=== PATIENT | female | born 1995 | race Two or more races ===

== ENCOUNTER 2017-08-13 13:21 | Emergency (ER) | payer MEDICAID, OTHER ==
[2017-08-13] MEDS ORDERED: MORPHINE 10 MG/ML VIAL IVP STA (13:59)
[2017-08-13] MEDS ORDERED: SODIUM CHLORIDE 0.9% 1,000 ML IV ONE (13:59)
[2017-08-13] MEDS ORDERED: KETOROLAC 30 MG/ML VIAL IVP STA (13:59)
[2017-08-13] MEDS ORDERED: ONDANSETRON 4 MG/2 ML VIAL IVP STA (13:59)
--- NOTE | 2017-08-13 14:02 | ED Physician Documentation ---
PD HPI ABD PAIN - Stated complaint Stated Complaint: SIDE PX - Chief complaint Chief Complaint: Abd Pain - History obtained from History obtained from: Patient - History of Present Illness Timing - onset: Today (At 1030 she abruptly developed severe wavelike crampy left-sided abdominal and flank pain associated with cloudy but not bloody urine. When the pain is bad she feels like she needs to vomit. is unlikely because of oral contraception.) Review of Systems Constitutional: denies: Fever, Chills Cardiac: denies: Chest pain / pressure, Palpitations Respiratory: denies: Dyspnea, Cough GI: reports: Abdominal Pain, Nausea. denies: Vomiting, Constipation, Diarrhea : denies: Dysuria, Frequency PD PAST MEDICAL HISTORY - Past Medical History Past Medical History: No - Present Medications Home Medications: Ambulatory Orders Medication Instructions Recorded Confirmed Ciprofloxacin HCl [Cipro] 500 mg PO BID #14 tablet 08/13/17 HYDROcod/ACETAM 5/325 [[place] 5/325] 1 - 2 ea PO Q6H PRN #15 tablet 08/13/17 - Allergies Allergies/Adverse Reactions: Allergies Allergy/AdvReac Type Severity Reaction Status Date / Time amoxicillin Allergy Anaphylaxis Verified 08/13/17 13:36 Penicillins Allergy Anaphylaxis Verified 08/13/17 13:36 - Social History Substance Use and Type: Marijuana - Family History Family history: reports: Non contributory PD ED PE NORMAL - Vitals Vital signs reviewed: Yes - General General: Alert and oriented X 3, No acute distress - HEENT HEENT: PERRL, EOMI - Neck Neck: Supple, no meningeal sign, No bony TTP - Cardiac Cardiac: RRR, No murmur - Respiratory Respiratory: No respiratory distress, Clear bilaterally - Abdomen Abdomen: Other (Mild, left-sided abdominal tenderness, no surgical signs.) - Back Back: No CVA TTP, No spinal TTP - Derm Derm: Normal color, Warm and dry - Extremities Extremities: No edema, No calf tenderness / cord - Neuro Neuro: Alert and oriented X 3, Normal speech - Psych Psych: Normal mood, Normal affect Results - Vitals Vitals: Vital Signs - 24 hr 08/13/17 13:29 Temperature 36.6 C Heart Rate 87 Respiratory 16 Rate Blood Pressure 132/78 H O2 Saturation 99 Oxygen O2 Source Room air - Labs Labs: Laboratory Tests 08/13/17 08/13/17 08/13/17 13:44 13:44 14:20 WBC 9.7 RBC 4.97 Hgb 15.2 Hct 45.0 MCV 90.6 MCH 30.5 MCHC 33.7 RDW 13.7 Plt Count 237 MPV 8.5 Neut # 6.5 Lymph # 2.7 [place] # 0.4 Eos # 0.1 Baso # 0.0 Absolute Nucleated RBC 0.01 Nucleated RBC % 0.1 Sodium Potassium Chloride Carbon Dioxide Anion Gap BUN Creatinine Estimated GFR (MDRD) Glucose Calcium Total Bilirubin AST ALT Alkaline Phosphatase Total Protein Albumin Globulin Albumin/Globulin Ratio Lipase Urine Color YELLOW Urine Clarity CLOUDY Urine pH 7.5 Ur Specific [place] 1.020 1.020 Urine Protein NEGATIVE Urine Glucose (UA) NEGATIVE Urine Ketones NEGATIVE Urine Occult Blood SMALL H Urine Nitrite NEGATIVE Urine Bilirubin NEGATIVE Urine Urobilinogen 0.2 (NORMAL) Ur Leukocyte Esterase NEGATIVE Urine RBC 6-10 H Urine WBC 0-3 Ur Squamous Epith Cells FEW Squamous Amorphous Sediment Moderate Urine Bacteria Moderate H Ur Microscopic Review INDICATED Urine Culture Comments INDICATED Urine HCG, Qual NEGATIVE 08/13/17 14:20 WBC RBC Hgb Hct MCV MCH MCHC RDW Plt Count MPV Neut # Lymph # [place] # Eos # Baso # Absolute Nucleated RBC Nucleated RBC % Sodium 137 Potassium 3.6 Chloride 102 Carbon Dioxide 26 Anion Gap 9.0 BUN 14 Creatinine 0.7 Estimated GFR (MDRD) 107 Glucose 89 Calcium 9.8 Total Bilirubin 0.6 AST 17 ALT 18 Alkaline Phosphatase 61 Total Protein 8.1 Albumin 4.9 Globulin 3.2 Albumin/Globulin Ratio 1.5 Lipase 28 Urine Color Urine Clarity Urine pH Ur Specific [place] Urine Protein Urine Glucose (UA) Urine Ketones Urine Occult Blood Urine Nitrite Urine Bilirubin Urine Urobilinogen Ur Leukocyte Esterase Urine RBC Urine WBC Ur Squamous Epith Cells Amorphous Sediment Urine Bacteria Ur Microscopic Review Urine Culture Comments Urine HCG, Qual - Rads (name of study) CT KUB Radiology: EMP read contemporaneously (Small nonobstructing stones within the left kidney without obvious obstructing stone or hydronephrosis.) PD MEDICAL DECISION MAKING - ED course ED course: 21-year-old woman presents with what seems like renal colic, however no obstructing stones are seen on CT KUB. Review of her other diagnostic suggested it is more likely to be pyelonephritis. She is nontoxic. She was pain-free after the administration of pain medications here. Departure - Departure Disposition: Home, Self Care Clinical Impression: Pyelonephritis Condition: Good Record reviewed to determine appropriate education?: Yes Instructions: Pyelonephritis Dc Prescriptions: Ciprofloxacin HCl [Cipro] 500 mg PO BID #14 tablet HYDROcod/ACETAM 5/325 [[place] 5/325] 1 - 2 ea PO Q6H PRN #15 tablet PRN Reason: Pain Comments: Call your doctor to arrange a follow-up appointment, make the next available appointment. In the interim, return anytime if worse or if new symptoms develop. Your blood pressure was elevated today on check into the emergency department. This does not mean that you have hypertension, it is a common phenomenon to come to the emergency department and have elevated blood pressure. I recommend that you see your primary care physician within the week to have it rechecked when you are feeling better. Do not drink or drive while taking narcotic pain medication. Note that many narcotic pain relievers also contain Tylenol/acetaminophen. Please ensure that your total dose of acetaminophen from all sources does not exceed 3 g (3000 mg) per day. You may get constipated while on this medication. Take a stool softener such as Colace twice a day while you are on it. Also add an [id number] laxative such as senna or MiraLAX on any day that you do not have a bowel movement. If you received a narcotic pain medication or sedative while in the emergency department, do not drive for the next 24 hours. Forms: Activity restrictions
[2017-08-13 14:07] LABS: BILIRUBIN,URINE NEGATIVE (NEGATIVE); GLUCOSE, URINE (UA) NEGATIVE (NEGATIVE); KETONES,URINE (UA) NEGATIVE (NEGATIVE); LEUKOCYTE ESTERASE, URINE NEGATIVE (NEGATIVE); NITRITE,URINE NEGATIVE (NEGATIVE); OCCULT BLOOD,URINE SMALL (NEGATIVE); PH,URINE 7.5 PH (5.0-7.5); PROTEIN,URINE NEGATIVE (NEGATIVE); UROBILINOGEN,URINE 0.2 (NORMAL) E.U./dL (NORMAL)
[2017-08-13 14:10] LABS: CLARITY,URINE CLOUDY (CLEAR)
[2017-08-13 14:22] LABS: AMORPHOUS SEDIMENT,UR Moderate /LPF; BACTERIA,URINE Moderate /HPF (None Seen); SQUAMOUS EPITHELIAL CELL,UR FEW Squamous (<= Few)
[2017-08-13 14:30] LABS: HCG UR QUAL NEGATIVE
[2017-08-13 14:38] LABS: BASOPHILS % (AUTO) 0.4 %; EOSINOPHILS # (AUTO) 0.1 10^3/uL (0.0-0.7); EOSINOPHILS % (AUTO) 0.5 %; HGB - HEMOGLOBIN 15.2 g/dL (12.0-16.0); LYMPHOCYTES # (AUTO) 2.7 10^3/uL (1.5-3.5); LYMPHOCYTES % (AUTO) 27.7 %; MEAN CORPUSCULAR HEMOGLOBIN 30.5 pg (27.0-31.0); MEAN CORPUSCULAR HGB CONC 33.7 g/dL (32.0-36.0); MEAN CORPUSCULAR VOLUME 90.6 fL (81.0-99.0); MEAN PLATELET VOLUME 8.5 fL (7.9-10.8); MONOCYTES # (AUTO) 0.4 10^3/uL (0.0-1.0); MONOCYTES % (AUTO) 4.2 %; NEUTROPHILS # (AUTO) 6.5 10^3/uL (1.5-6.6); NEUTROPHILS % (AUTO) 67.2 %; PLT - PLATELET COUNT 237 10^3/uL (130-450); RED BLOOD COUNT 4.97 10^6/uL (4.20-5.40); RED CELL DISTRIBUTION WIDTH 13.7 % (12.0-15.0); WHITE BLOOD COUNT 9.7 x10^3/uL (4.8-10.8)
[2017-08-13 14:50] LABS: ALBUMIN 4.9 g/dL (3.2-5.5); ALBUMIN/GLOBULIN RATIO 1.5 (1.0-2.2); BILIRUBIN,TOTAL 0.6 mg/dL (0.2-1.0); CALCIUM 9.8 mg/dL (8.5-10.3); CREATININE 0.7 mg/dL (0.4-1.0); TOTAL PROTEIN 8.1 g/dL (6.7-8.2)
--- NOTE | 2017-08-13 15:06 | CT Report ---
EXAM: CT ABDOMEN AND PELVIS EXAM DATE: 08/13/2017 02:41 PM. CLINICAL HISTORY: L flank pain. COMPARISONS: 05/12/2011. TECHNIQUE: Routine axial helical CT imaging was performed through the abdomen and pelvis without IV c ontrast. Reconstructions: Coronal and sagittal. In accordance with CT protocol optimization, one or more of the following dose reduction techniques w ere utilized for this exam: automated exposure control, adjustment of mA and/or KV based on patient s ize, or use of iterative reconstructive technique. FINDINGS: Lung Bases: Unremarkable. Abdominal Organs: There are several small nonobstructing stones within the left kidney. There is no e vidence of distal obstructing stone or significant hydronephrosis. Gallbladder/bile ducts: No significant abnormalities. Peritoneal Cavity: No free fluid, free air or donnell adenopathy. Bowel is grossly unremarkable. Pelvic Organs: No bladder stones or wall thickening. Noncontrast images of the visualized pelvic orga ns are unremarkable. Vasculature: Unremarkable. Other: None. IMPRESSION: 1. There are small nonobstructing stones within the left kidney. There is no clear evidence of distal obstructing stone or hydronephrosis. 2. Otherwise negative noncontrast CT of the abdomen and pelvis. Referring Provider Line: [phone] SITE ID: [id number]
[2017-08-13] MEDS ORDERED: CIPROFLOXACIN 250 MG TABLET PO STA (15:13)
[2017-08-13 15:37] VITALS: BP 110/61
== END 2017-08-13 15:38 | disposition home or self-care (01) ==
LOC: ED 13:21
DX: N12 Tubulo-interstitial nephritis, not specified as acute or chronic (principal); I10 Essential (primary) hypertension
CPT/HCPCS: 36415; 74176; 80053; 81001; 81025; 83690; 85025; 87086; 96374; 96375; 99283; 99284; A9270; 81003

== ENCOUNTER 2017-12-21 18:49 | Emergency (ER) | payer OTHER ==
[2017-12-21 18:56] VITALS: BP 115/61
[2017-12-21 19:27] LABS: BILIRUBIN,URINE NEGATIVE (NEGATIVE); GLUCOSE, URINE (UA) NEGATIVE (NEGATIVE); KETONES,URINE (UA) NEGATIVE (NEGATIVE); LEUKOCYTE ESTERASE, URINE SMALL (NEGATIVE); NITRITE,URINE NEGATIVE (NEGATIVE); OCCULT BLOOD,URINE LARGE (NEGATIVE); PROTEIN,URINE NEGATIVE (NEGATIVE); UROBILINOGEN,URINE 0.2 (NORMAL) E.U./dL (NORMAL)
[2017-12-21 19:32] LABS: CLARITY,URINE CLEAR (CLEAR); HCG UR QUAL NEGATIVE
[2017-12-21 19:36] LABS: BACTERIA,URINE Many /HPF (None Seen); RBC,URINE TNTC /HPF (0-5); SQUAMOUS EPITHELIAL CELL,UR FEW Squamous (<= Few); WBC CLUMPS,URINE PRESENT
[2017-12-21] MEDS ORDERED: KETOROLAC 60 MG/2 ML VIAL IVP STA (20:54)
[2017-12-21] MEDS ORDERED: ONDANSETRON 4 MG/2 ML VIAL IVP STA (20:54)
[2017-12-21] MEDS ORDERED: SODIUM CHLORIDE 0.9% 1,000 ML IV ONE (20:54)
--- NOTE | 2017-12-21 20:59 | ED Physician Documentation ---
PD HPI ABD PAIN - Stated complaint Stated Complaint: L ABD/BACK PX - Chief complaint Chief Complaint: Abd Pain - History obtained from History obtained from: Patient - History of Present Illness Timing - onset: Today (22-year-old woman who I saw a few months ago for pyelonephritis, negative cultures at the time. CT noted, left nephrolithiasis at that time. She developed sudden left flank pain today with 3 episodes of vomiting and no urinary symptoms or fevers.) Review of Systems Constitutional: denies: Fever, Chills Eyes: reports: Reviewed and negative GI: reports: Nausea, Vomiting, Constipation. denies: Abdominal Pain, Diarrhea Skin: reports: Reviewed and negative PD PAST MEDICAL HISTORY - Past Medical History Other Past Medical History: kidney stone - Past Surgical History Past Surgical History: No - Present Medications Home Medications: Ambulatory Orders Medication Instructions Recorded Confirmed Ciprofloxacin HCl [Cipro] 500 mg PO BID #20 tablet 12/21/17 Hydrocodone/Acetaminophen 1 - 2 each PO Q6H PRN #14 tablet 12/21/17 [Hydrocodon-Acetaminophen 5-325] Ondansetron Odt [Zofran] 4 mg TL Q6H PRN #10 tablet 12/21/17 Tamsulosin [Flomax] 0.4 mg PO DAILY #14 capsule 12/21/17 - Allergies Allergies/Adverse Reactions: Allergies Allergy/AdvReac Type Severity Reaction Status Date / Time amoxicillin Allergy Anaphylaxis Verified 12/21/17 20:48 Penicillins Allergy Anaphylaxis Verified 12/21/17 20:48 - Social History Does the pt smoke?: No Smoking Status: Never smoker Does the pt drink ETOH?: No Does the pt have substance abuse?: Yes - Immunizations Immunizations are current?: Yes PD ED PE NORMAL - Vitals Vital signs reviewed: Yes - General General: Alert and oriented X 3, No acute distress - Cardiac Cardiac: RRR, No murmur - Respiratory Respiratory: No respiratory distress, Clear bilaterally - Abdomen Abdomen: Normal bowel sounds, Soft, Non tender - Back Back: No CVA TTP, No spinal TTP - Derm Derm: Normal color, Warm and dry - Extremities Extremities: No edema, No calf tenderness / cord - Neuro Neuro: Alert and oriented X 3, Normal speech Results - Vitals Vitals: Vital Signs - 24 hr 12/21/17 18:53 Temperature 37.0 C Heart Rate 87 Respiratory 16 Rate Blood Pressure 115/61 O2 Saturation 98 Oxygen O2 Source Room air - Labs Labs: Laboratory Tests 12/21/17 12/21/17 12/21/17 19:21 21:05 21:05 WBC 14.9 H RBC 4.77 Hgb 15.0 Hct 43.6 MCV 91.5 MCH 31.4 H MCHC 34.3 RDW 14.1 Plt Count 289 MPV 8.3 Neut # (Auto) 10.9 H Lymph # (Auto) 2.9 [place] # (Auto) 0.9 Eos # (Auto) 0.0 Baso # (Auto) 0.1 Absolute Nucleated RBC 0.01 Nucleated RBC % 0.0 Sodium 140 Potassium 4.0 Chloride 107 Carbon Dioxide 28 Anion Gap 5.0 L BUN 10 Creatinine 1.0 Estimated GFR (MDRD) 70 L Glucose 98 Calcium 9.5 Total Bilirubin 0.2 AST 19 ALT 16 Alkaline Phosphatase 72 Total Protein 8.0 Albumin 4.4 Globulin 3.6 Albumin/Globulin Ratio 1.2 Lipase 33 Urine Color YELLOW Urine Clarity CLEAR Urine pH 7.0 Ur Specific [place] 1.020 Urine Protein NEGATIVE Urine Glucose (UA) NEGATIVE Urine Ketones NEGATIVE Urine Occult Blood LARGE H Urine Nitrite NEGATIVE Urine Bilirubin NEGATIVE Urine Urobilinogen 0.2 (NORMAL) Ur Leukocyte Esterase SMALL H Urine RBC TNTC H Urine WBC >25 H Urine WBC Clumps PRESENT Ur Squamous Epith Cells FEW Squamous Urine Bacteria Many H Ur Microscopic Review INDICATED Urine Culture Comments INDICATED Urine HCG, Qual NEGATIVE - Rads (name of study) CT KUB Radiology: EMP read contemporaneously (2 small 2 mm left distal ureteral stones with mild hydronephrosis.) PD MEDICAL DECISION MAKING - ED course ED course: Urinalysis consistent with pyelonephritis but the lack of urinary symptoms and relatively sudden onset make me worried for infected ureteral stone given that she had known ureteral stones on that side from prior CT so this needs to be repeated. The CT did show 2 small distal left ureteral stones. Given the infection the case was discussed by phone with Dr. Liz De Jesus, urologist at [facility] who felt that given the lack of fever and the lower and small nature of the stones this could be treated with oral antibiotics as an outpatient with follow-up with them in the clinic. - Sepsis Event Vital Signs: Vital Signs - 24 hr 12/21/17 18:53 Temperature 37.0 C Heart Rate 87 Respiratory 16 Rate Blood Pressure 115/61 O2 Saturation 98 Oxygen O2 Source Room air Departure - Departure Disposition: 01 Home, Self Care Clinical Impression: Pyelonephritis, Renal colic Condition: Good Record reviewed to determine appropriate education?: Yes Instructions: Pyelonephritis Dc Prescriptions: Ciprofloxacin HCl [Cipro] 500 mg PO BID #20 tablet Hydrocodone/Acetaminophen [Hydrocodon-Acetaminophen 5-325] 1 - 2 each PO Q6H PRN #14 tablet PRN Reason: pain Ondansetron Odt [Zofran] 4 mg TL Q6H PRN #10 tablet PRN Reason: Nausea / Vomiting Tamsulosin [Flomax] 0.4 mg PO DAILY #14 capsule Comments: You need to follow-up with a urologist. I spoke with Dr. Liz luke, her phone number [phone]. Call them tomorrow. We will culture your urine, the results should be done in 48-72 hours. If an antibiotic change is necessary we will call you. Return if worse in the meantime, especially if you develop increasing flank pain, fevers, or cannot keep down the medication. Forms: Activity restrictions Discharge Date/Time: 12/21/17 22:38
[2017-12-21 21:18] LABS: BASOPHILS # (AUTO) 0.1 10^3/uL (0.0-0.1); BASOPHILS % (AUTO) 0.6 %; EOSINOPHILS % (AUTO) 0.2 %; LYMPHOCYTES # (AUTO) 2.9 10^3/uL (1.5-3.5); LYMPHOCYTES % (AUTO) 19.5 %; MEAN CORPUSCULAR HEMOGLOBIN 31.4 pg (27.0-31.0); MEAN CORPUSCULAR HGB CONC 34.3 g/dL (32.0-36.0); MEAN CORPUSCULAR VOLUME 91.5 fL (81.0-99.0); MEAN PLATELET VOLUME 8.3 fL (7.9-10.8); MONOCYTES # (AUTO) 0.9 10^3/uL (0.0-1.0); MONOCYTES % (AUTO) 6.3 %; NEUTROPHILS # (AUTO) 10.9 10^3/uL (1.5-6.6); NEUTROPHILS % (AUTO) 73.4 %; PLT - PLATELET COUNT 289 10^3/uL (130-450); RED BLOOD COUNT 4.77 10^6/uL (4.20-5.40); RED CELL DISTRIBUTION WIDTH 14.1 % (12.0-15.0); WHITE BLOOD COUNT 14.9 x10^3/uL (4.8-10.8)
[2017-12-21 21:32] LABS: ALBUMIN 4.4 g/dL (3.2-5.5); ALBUMIN/GLOBULIN RATIO 1.2 (1.0-2.2); BILIRUBIN,TOTAL 0.2 mg/dL (0.2-1.0); CALCIUM 9.5 mg/dL (8.5-10.3)
--- NOTE | 2017-12-21 21:40 | CT Report ---
Reason: L flank pain, poss infected ureteral stone Procedure Date: 12/21/2017 Accession Number: [id number] / [id number] Procedure: CT - Abdomen/Pelvis W/O CPT Code: FULL RESULT: EXAM: CT ABDOMEN AND PELVIS EXAM DATE: 12/21/2017 09:23 PM. CLINICAL HISTORY: L flank pain, poss infected ureteral stone. COMPARISONS: 08/13/2017 TECHNIQUE: Routine helical CT imaging was performed through the abdomen and pelvis without intravenous or oral contrast as per clinical request. Lack of intravenous contrast can at times limited scan sensitivity, particularly for the detection of intraparenchymal and vascular pathology. Reconstructions: Coronal and sagittal. In accordance with CT protocol optimization, one or more of the following dose reduction techniques were utilized for this exam: automated exposure control, adjustment of mA and/or KV based on patient size, or use of iterative reconstructive technique. FINDINGS: ABDOMEN: Lung Bases: Incompletely included lower lungs are grossly clear. Heart size is within normal limits. No basilar effusions. Liver: Unremarkable. Gallbladder/Bile Ducts: Gallbladder is unremarkable. Visualized biliary tree is normal caliber. Spleen: Unremarkable. Pancreas: Unremarkable. Adrenal Glands: Unremarkable. Kidneys: Left kidney: 2 previously seen 2 mm left renal calculi are now present in the distal left ureter adjacent to the UVJ with mild hydroureteronephrosis. Right kidney: No calculi or hydronephrosis. Peritoneum/Mesentery/Bowel: No free fluid, free air, or collection. No intestinal obstruction or inflammation. The appendix is within normal limits. Lymph nodes: No mesenteric, periportal, or retroperitoneal lymphadenopathy. PELVIS: The bladder is unremarkable for the degree of distention. Uterus is present. No pelvic lymphadenopathy. Retroperitoneum: Abdominal aorta is nonaneurysmal. Bones: No suspicious osseous lesions. IMPRESSION: There are 2 adjacent 2 mm calculi in the distal left ureter adjacent to the UVJ with mild upstream hydroureteronephrosis. RADIA
[2017-12-21] MEDS ORDERED: CIPROFLOXACIN 250 MG TABLET PO STA (22:03)
[2017-12-21] MEDS ORDERED: TAMSULOSIN 0.4 MG CAPSULE PO STA (22:03)
[2017-12-21] MEDS ORDERED: HYDROcod/ACET 5/325 Prepack 4 PO STA (22:08)
[2017-12-21] MEDS ORDERED: ONDANSETRON ODT 4 MG TABLET TL STA (22:09)
== END 2017-12-21 22:38 | disposition home or self-care (01) ==
LOC: ED 18:49
DX: N12 Tubulo-interstitial nephritis, not specified as acute or chronic (principal); N23 Unspecified renal colic
CPT/HCPCS: 36415; 74176; 80053; 81001; 81025; 83690; 85025; 87086; 96374; 96375; 96376; 99283; 99284; A9270; Q0162; 81003; 87181

== ENCOUNTER 2018-02-19 00:32 | Emergency (ER) | payer OTHER ==
--- NOTE | 2018-02-19 01:25 | ED Physician Documentation ---
PD HPI HEENT - Stated complaint Stated Complaint: EAR PX - Chief complaint Chief Complaint: Heent - History obtained from History obtained from: Patient, Family - History of Present Illness Timing - onset: How many days ago (5) Timing - duration: Days (5) Timing - details: Gradual onset, Still present Location: Left ear, Throat Improves: Medication Worsens: Swalllowing Associated symptoms: Fever, Congestion, Unable to swallow, Swollen nodes, Facial swelling, Headache Similar symptoms before: Diagnosis (strep) Recently seen: Clinic - Additional information Additional information: 22-year-old female was diagnosed with strep pharyngitis 5 days ago she started on some azithromycin and she is not better. She has continued to have swelling and pain in her throat she is not been able to swallow and she has not been able to eat or drink much. She feels very dehydrated. She is allergic to penicillin. Tonight she is developed pain in her left ear as well and she is coming to the emergency department for evaluation. Review of Systems Constitutional: reports: Fever, Myalgias, Fatigue Eyes: denies: Decreased vision Ears: reports: Ear pain Nose: reports: Rhinorrhea / runny nose, Congestion Throat: reports: Sore throat Cardiac: denies: Chest pain / pressure, Palpitations Respiratory: reports: Cough. denies: Dyspnea GI: denies: Abdominal Pain, Nausea, Vomiting : denies: Dysuria, Frequency PD PAST MEDICAL HISTORY - Past Medical History Past Medical History: No - Past Surgical History Past Surgical History: No - Present Medications Home Medications: Ambulatory Orders Medication Instructions Recorded Confirmed Ciprofloxacin HCl [Cipro] 500 mg PO BID #20 tablet 12/21/17 Hydrocodone/Acetaminophen 1 - 2 each PO Q6H PRN #14 tablet 12/21/17 [Hydrocodon-Acetaminophen 5-325] Ondansetron Odt [Zofran] 4 mg TL Q6H PRN #10 tablet 12/21/17 Tamsulosin [Flomax] 0.4 mg PO DAILY #14 capsule 12/21/17 RX: Cefdinir 300 mg PO BID #14 capsule 02/19/18 - Allergies Allergies/Adverse Reactions: Allergies Allergy/AdvReac Type Severity Reaction Status Date / Time amoxicillin Allergy Anaphylaxis Verified 02/19/18 00:38 Penicillins Allergy Anaphylaxis Verified 02/19/18 00:38 - Social History Does the pt smoke?: No Smoking Status: Never smoker Does the pt drink ETOH?: No Does the pt have substance abuse?: Yes - Immunizations Immunizations are current?: Yes - POLST Patient has POLST: No PD ED PE NORMAL - Vitals Vital signs reviewed: Yes (tachy and hypertensive mild ) - General General: Alert and oriented X 3, No acute distress, Well developed/nourished, Other (The patient has a mouth full of eggs voice. ) - HEENT HEENT: Atraumatic, PERRL, EOMI, Ears normal, Other (The ears are normal, the pharynx is with 2+ cryptic tonsil on the right and 3+ on the left with exudate. ) - Neck Neck: Supple, no meningeal sign, No bony TTP, Other (There is tender submandibular adenopathy bilaterally worse on the left. ) - Cardiac Cardiac: No murmur, Other (tachy ) - Respiratory Respiratory: No respiratory distress, Clear bilaterally - Abdomen Abdomen: Soft, Non tender - Back Back: No CVA TTP, No spinal TTP - Derm Derm: Normal color, Warm and dry, No rash - Extremities Extremities: No deformity, No edema - Neuro Neuro: Alert and oriented X 3, bone density technician 2-12 intact, No motor deficit, No sensory deficit, Normal speech Eye Opening: Spontaneous Motor: Obeys Commands Verbal: Oriented GCS Score: 15 - Psych Psych: Normal mood, Normal affect Results - Vitals Vitals: Vital Signs - 24 hr 02/19/18 02/19/18 00:37 03:31 Temperature 36.9 C Heart Rate 106 H 96 Respiratory 16 16 Rate Blood Pressure 133/76 H 117/70 O2 Saturation 100 100 Oxygen O2 Source Room air - Labs Labs: Laboratory Tests 02/19/18 02/19/18 01:45 01:45 WBC 17.9 H RBC 4.90 Hgb 14.8 Hct 44.3 MCV 90.4 MCH 30.2 MCHC 33.4 RDW 13.3 Plt Count 306 MPV 8.4 Neut # (Auto) 14.6 H Lymph # (Auto) 1.9 [place] # (Auto) 1.3 H Eos # (Auto) 0.0 Baso # (Auto) 0.1 Absolute Nucleated RBC 0.02 Nucleated RBC % 0.1 Sodium 138 Potassium 3.7 Chloride 101 Carbon Dioxide 22 Anion Gap 15.0 H BUN 10 Creatinine 0.8 Estimated GFR (MDRD) 91 Glucose 87 Calcium 9.4 Total Bilirubin 1.2 H AST 17 ALT 12 Alkaline Phosphatase 80 Total Protein 8.7 H Albumin 4.2 Globulin 4.5 H Albumin/Globulin Ratio 0.9 L Lipase 22 Procedures - IVC sono (time) 0120 Bedside IVC sono: IVC measures (cm) (0.95), IVC collapsed c insp (cm) (complete), Dehydration (est 1-2 liter deficit) PD MEDICAL DECISION MAKING - ED course Complexity details: reviewed old records, reviewed results, re-evaluated patient, considered differential, d/w patient, d/w family ED course: 22-year-old female with acute cryptic tonsillitis has not responded to treatment with azithromycin. She is unable to swallow even her spit and it does look like she has marked swelling of the tonsils. She is administered intravenous dexamethasone saline and Rocephin. The patient has marked improvement and after 2 liters are infused she is discharged to home. Departure - Departure Disposition: 01 Home, Self Care Clinical Impression: Acute bacterial tonsillitis, Dehydration Instructions: ED Dehydration, ED Tonsillitis Follow-Up: Kanu Mullins MD [Provider Admit Priv/Credential] - Prescriptions: RX: Cefdinir 300 mg PO BID #14 capsule Discharge Date/Time: 02/19/18 03:32
[2018-02-19] MEDS ORDERED: SODIUM CHLORIDE 0.9% 1,000 ML IV ONE ×2 (01:28→02:42)
[2018-02-19] MEDS ORDERED: cefTRIAXone 1 GM in SODIUM CHLORIDE 0.9% MINIBAG 100 ML IV STA (01:28)
[2018-02-19] MEDS ORDERED: DEXAMETHASONE 10 MG/ML VIAL IVP ONE (01:28)
[2018-02-19 02:13] LABS: BASOPHILS # (AUTO) 0.1 10^3/uL (0.0-0.1); BASOPHILS % (AUTO) 0.3 %; EOSINOPHILS % (AUTO) 0.1 %; HGB - HEMOGLOBIN 14.8 g/dL (12.0-16.0); LYMPHOCYTES # (AUTO) 1.9 10^3/uL (1.5-3.5); LYMPHOCYTES % (AUTO) 10.7 %; MEAN CORPUSCULAR HEMOGLOBIN 30.2 pg (27.0-31.0); MEAN CORPUSCULAR HGB CONC 33.4 g/dL (32.0-36.0); MEAN CORPUSCULAR VOLUME 90.4 fL (81.0-99.0); MEAN PLATELET VOLUME 8.4 fL (7.9-10.8); MONOCYTES # (AUTO) 1.3 10^3/uL (0.0-1.0); MONOCYTES % (AUTO) 7.5 %; NEUTROPHILS # (AUTO) 14.6 10^3/uL (1.5-6.6); NEUTROPHILS % (AUTO) 81.4 %; PLT - PLATELET COUNT 306 10^3/uL (130-450); RED CELL DISTRIBUTION WIDTH 13.3 % (12.0-15.0); WHITE BLOOD COUNT 17.9 x10^3/uL (4.8-10.8)
[2018-02-19 02:15] LABS: ALBUMIN 4.2 g/dL (3.2-5.5); ALBUMIN/GLOBULIN RATIO 0.9 (1.0-2.2); BILIRUBIN,TOTAL 1.2 mg/dL (0.2-1.0); CALCIUM 9.4 mg/dL (8.5-10.3); CREATININE 0.8 mg/dL (0.4-1.0); TOTAL PROTEIN 8.7 g/dL (6.7-8.2)
[2018-02-19 03:32] VITALS: BP 117/70
== END 2018-02-19 03:32 | disposition home or self-care (01) ==
LOC: ED 00:32
DX: J03.90 Acute tonsillitis, unspecified (principal); B96.89 Other specified bacterial agents as the cause of diseases classified elsewhere; E86.0 Dehydration; Z88.0 Allergy status to penicillin
CPT/HCPCS: 36415; 80053; 83690; 85025; 96361; 96365; 96375; 99283

== ENCOUNTER 2021-08-27 04:39 | Emergency (ER) | payer OTHER ==
[2021-08-27] MEDS ORDERED: SODIUM CHLORIDE 0.9% 1,000 ML IV STA (04:59)
[2021-08-27] MEDS ORDERED: KETOROLAC 30 MG/ML VIAL IVP STA (04:59)
[2021-08-27] MEDS ORDERED: ONDANSETRON 4 MG/2 ML VIAL IVP STA ×2 (04:59→08:12)
--- NOTE | 2021-08-27 05:16 | ED Physician Documentation ---
PD HPI NVD - Stated complaint Stated Complaint: VOMITING - Chief complaint Chief Complaint: Abd Pain - History obtained from History obtained from: Patient - Additonal information Additional information: Patient is a 26-year-old female with no significant past medical history presenting for evaluation of multiple episodes of emesis and diarrhea starting at 10 PM. She reports feeling somewhat unwell all through the day yesterday did not eat much other than a piece of lump you. She has been vomiting Liquids including some bile and now dry heaving. She reports her diarrhea was watery. She does report generalized abdominal discomfort. She is unaware of any sick contacts. Denies recent fever, cough, congestion, chest pain or difficulty breathing. She denies dysuria or concerns for . She denies vaginal discharge or pelvic pain. Review of Systems Constitutional: denies: Fever Nose: denies: Congestion Throat: denies: Sore throat Cardiac: denies: Chest pain / pressure, Palpitations Respiratory: denies: Dyspnea, Cough GI: reports: Abdominal Pain, Nausea, Vomiting, Diarrhea : denies: Dysuria, Hematuria, Discharge, Vaginal bleeding Skin: denies: Rash Musculoskeletal: denies: Back pain Neurologic: denies: Headache PD PAST MEDICAL HISTORY - Past Surgical History Past Surgical History: No - Present Medications Home Medications: Ambulatory Orders Medication Instructions Recorded Confirmed Ondansetron Odt [Zofran] 4 mg TL Q6H PRN #10 tablet 08/27/21 - Allergies Allergies/Adverse Reactions: Allergies Allergy/AdvReac Type Severity Reaction Status Date / Time amoxicillin Allergy Anaphylaxis Verified 08/27/21 04:48 Penicillins Allergy Anaphylaxis Verified 08/27/21 04:48 - Social History Does the pt smoke?: No Smoking Status: Never smoker Does the pt drink ETOH?: No Does the pt have substance abuse?: Yes - Immunizations Immunizations are current?: Yes - POLST Patient has POLST: No PD ED PE NORMAL - General General: Alert and oriented X 3, No acute distress, Well developed/nourished, Other (Dry heaving) - HEENT HEENT: Atraumatic, Moist mucous membranes, Pharynx benign - Neck Neck: Supple, no meningeal sign - Cardiac Cardiac: RRR, No murmur, Strong equal pulses - Respiratory Respiratory: No respiratory distress, Clear bilaterally - Abdomen Abdomen: Normal bowel sounds, Soft, Non distended, Other (Left-sided abdominal tenderness to palpation, no rebound, no guarding, no masses). No: Non tender - Back Back: No CVA TTP - Derm Derm: Warm and dry - Extremities Extremities: No edema - Neuro Neuro: No motor deficit, Normal speech - Psych Psych: Normal mood PD ED PE EXPANDED - Abdomen Abdomen: LUQ, LLQ Results - Vitals Vitals: Vital Signs - 24 hr 08/27/21 08/27/21 08/27/21 04:45 06:47 08:00 Temperature 36.1 C L Heart Rate 71 64 66 Respiratory 18 18 17 Rate Blood Pressure 114/66 97/58 L 91/50 L O2 Saturation 100 100 100 08/27/21 09:23 Temperature 36.8 C Heart Rate 60 Respiratory 16 Rate Blood Pressure 95/52 L O2 Saturation 100 Oxygen O2 Source Room air - Labs Labs: Laboratory Tests 08/27/21 08/27/21 08/27/21 05:45 05:45 06:05 WBC 12.7 H RBC 5.19 Hgb 16.4 H Hct 46.5 MCV 89.6 MCH 31.6 H MCHC 35.3 RDW 12.4 Plt Count 274 MPV 9.9 Neut # (Auto) 10.4 H Lymph # (Auto) 1.7 [place] # (Auto) 0.4 Eos # (Auto) 0.0 Baso # (Auto) 0.0 Absolute Nucleated RBC 0.00 Nucleated RBC % 0.0 Sodium 144 Potassium 3.7 Chloride 107 Carbon Dioxide 21 Anion Gap 16.0 H BUN 12 Creatinine 0.9 Estimated GFR (MDRD) 76 L Glucose 122 H Calcium 9.5 Total Bilirubin 0.9 AST 31 ALT 26 Alkaline Phosphatase 57 Total Protein 8.3 H Albumin 4.8 Globulin 3.5 Albumin/Globulin Ratio 1.4 Lipase 34 Urine Color YELLOW Urine Clarity CLEAR Urine pH >=9.0 H Ur Specific [place] 1.010 Urine Protein 30 H Urine Glucose (UA) NEGATIVE Urine Ketones TRACE Urine Occult Blood NEGATIVE Urine Nitrite NEGATIVE Urine Bilirubin NEGATIVE Urine Urobilinogen 0.2 (NORMAL) Ur Leukocyte Esterase NEGATIVE Urine RBC 0-5 Urine WBC 0-3 Ur Squamous Epith Cells MOD Squamous H Urine Bacteria None Seen Ur Microscopic Review INDICATED Urine Culture Comments NOT INDICATED Urine HCG, Qual NEGATIVE PD MEDICAL DECISION MAKING - ED course Complexity details: reviewed results, re-evaluated patient, d/w patient ED course: Patient is a 26-year-old female presenting for evaluation of several episodes of vomiting and diarrhea. Her vital signs are stable. She has mild tenderness on exam but Does not appear to have a surgical abdomen. Labs are reviewed and reassuring. Patient did have improvement in her emesis and nausea with medications. She does continue to report left-sided abdominal tenderness with exam. A CT scan of the abdomen pelvis was obtained. Patient will be signed out to oncoming provider to follow-up on results of CT scan. Patient has no Pelvic complaints to suggest pelvic etiology. Departure - Departure Disposition: 01 Home, Self Care Clinical Impression: Vomiting, Diarrhea, Gastroenteritis, acute Condition: Stable Instructions: ED Nausea Vomiting Follow-Up: Kanu Mullins MD [Primary Care Provider] - Prescriptions: Ondansetron Odt [Zofran] 4 mg TL Q6H PRN #10 tablet PRN Reason: Nausea / Vomiting Comments: Your CT scan showed a normal appendix and gallbladder. There was some thickeni ng of the intestinal wall in the proximal and mid intestine consistent with enteritis (this finding would not be surprising given your symptoms of vomiting and diarrhea which would suggest some irritation of the bowel). This does not discriminate between being a viral versus bacterial versus food intolerance. Most of the abrupt onset causes for vomiting and diarrhea typically are short duration of a couple of days. Use ondansetron every 4-6 hours if needed for nausea. Tylenol ibuprofen if needed for cramps. I transmitted a prescription for the ondansetron to [facility] in [place]. Rest off work today.'s frequent fluids and bland food initially and progress diet as tolerated. Your CT scan did show an incidental finding of a right ovarian cyst 2 cm size. This is a common finding on CT and ultrasound. Follow-up with your primary care regarding any further evaluation or repeat imaging such as ultrasound in the near future. Discharge Date/Time: 08/27/21 09:24
[2021-08-27 05:50] LABS: BASOPHILS % (AUTO) 0.3 %; HCT - HEMATOCRIT 46.5 % (37.0-47.0); HGB - HEMOGLOBIN 16.4 g/dL (12.0-16.0); LYMPHOCYTES # (AUTO) 1.7 10^3/uL (1.5-3.5); LYMPHOCYTES % (AUTO) 13.4 %; MEAN CORPUSCULAR HEMOGLOBIN 31.6 pg (27.0-31.0); MEAN CORPUSCULAR HGB CONC 35.3 g/dL (32.0-36.0); MEAN CORPUSCULAR VOLUME 89.6 fL (81.0-99.0); MEAN PLATELET VOLUME 9.9 fL (7.9-10.8); MONOCYTES # (AUTO) 0.4 10^3/uL (0.0-1.0); MONOCYTES % (AUTO) 3.2 %; NEUTROPHILS # (AUTO) 10.4 10^3/uL (1.5-6.6); NEUTROPHILS % (AUTO) 82.5 %; PLT - PLATELET COUNT 274 10^3/uL (130-450); RED BLOOD COUNT 5.19 10^6/uL (4.20-5.40); RED CELL DISTRIBUTION WIDTH 12.4 % (12.0-15.0); WHITE BLOOD COUNT 12.7 x10^3/uL (4.8-10.8)
[2021-08-27 06:03] LABS: ALBUMIN 4.8 g/dL (3.2-5.5); ALBUMIN/GLOBULIN RATIO 1.4 (1.0-2.2); BILIRUBIN,TOTAL 0.9 mg/dL (0.2-1.0); CALCIUM 9.5 mg/dL (8.5-10.3); CREATININE 0.9 mg/dL (0.4-1.0); POTASSIUM 3.7 mmol/L (3.5-5.0); TOTAL PROTEIN 8.3 g/dL (6.7-8.2)
[2021-08-27 06:14] LABS: BILIRUBIN,URINE NEGATIVE (NEGATIVE); GLUCOSE, URINE (UA) NEGATIVE (NEGATIVE); KETONES,URINE (UA) TRACE mg/dL (NEGATIVE); LEUKOCYTE ESTERASE, URINE NEGATIVE (NEGATIVE); NITRITE,URINE NEGATIVE (NEGATIVE); OCCULT BLOOD,URINE NEGATIVE (NEGATIVE); PH,URINE >=9.0 PH (5.0-7.5); PROTEIN,URINE 30 mg/dL (NEGATIVE); UROBILINOGEN,URINE 0.2 (NORMAL) E.U./dL (NORMAL)
[2021-08-27 06:20] LABS: CLARITY,URINE CLEAR (CLEAR); HCG UR QUAL NEGATIVE
[2021-08-27 06:21] LABS: BACTERIA,URINE None Seen /HPF (None Seen); RBC,URINE 0-5 /HPF (0-5); SQUAMOUS EPITHELIAL CELL,UR MOD Squamous (<= Few); WBC,URINE 0-3 /HPF (0-5)
[2021-08-27] MEDS ORDERED: IOVERSOL 320 50 ML VIAL ONE (07:03)
[2021-08-27] MEDS ORDERED: IOVERSOL 320 50 ML VIAL IV ONE (07:34)
--- NOTE | 2021-08-27 08:11 | CT Report ---
PROCEDURE: Abdomen/Pelvis W INDICATIONS: L sided abd pain CONTRAST: IV CONTRAST: Isovue 300 ml: 100 PO CONTRAST: *NO PO CONTRAST TECHNIQUE: After the administration of weight appropriate dose of intravenous contrast, 5 mm thick sections acqu ired from the diaphragms to the symphysis. 5 mm thick coronal and sagittal reformats were acquired. For radiation dose reduction, the following was used: automated exposure control, adjustment of mA and/or kV according to patient size. COMPARISON: 12/21/2017 FINDINGS: Image quality: Excellent. ABDOMEN: Lung bases: Lung bases are clear. Heart size is normal. Solid organs: Liver and spleen are normal in size and enhancement. Gallbladder is unremarkable. Bi liary system is non dilated. Pancreas enhances normally. No adrenal nodules. Kidneys demonstrate n ormal size and enhancement, without hydronephrosis. Peritoneum and bowel: There is minimal circumferential wall thickening of the proximal and mid desce nding colon. Remainder of the colon appears unremarkable. Small bowel loops demonstrate normal wall t hickness and caliber. No free fluid or air. The visualized appendix appears normal. Nodes and vessels: No retroperitoneal or mesenteric adenopathy by size criteria. Aorta and inferior vena cava are normal in size. Miscellaneous: No ventral hernias. PELVIS: Genitourinary: Bladder wall thickness is normal. There is a 2.0 x 1.8 cm complex cystic lesion note d within the right adnexa, favored to represent a hemorrhagic cyst. Otherwise, no suspicious adnexal abnormalities are identified. Miscellaneous: No inguinal hernias or adenopathy. Trace pelvic free fluid, likely physiologic. Bones: No suspicious bony lesions. No acute vertebral body compression fractures. IMPRESSION: 1. Mild circumferential thickening of the proximal and mid descending colon which may represent segme ntal colitis, either infectious or inflammatory in etiology. No evidence for obstruction. 2. A 2 cm complex cystic lesion within the right adnexa which is favored to represent a hemorrhagic o varian cyst. If clinically warranted, consider further evaluation with pelvic ultrasound. No significant discrepancy with initial interpretation by overnight radiologist. Reviewed by: Jim Ventura MD on 08/27/2021 8:09 AM PDT Approved by: Jim Ventura MD on 08/27/2021 8:09 AM PDT Station ID: [id number]
--- NOTE | 2021-08-27 08:17 | ED Physician Documentation ---
ED Addendum - Addendum Addendum: 08/27/21 08:14The patient was updated on her CT findings which showed normal appendix and gallbladder. There was some thickening of the bowel wall in the proximal to mid intestine consistent with colitis. Her symptoms had started abruptly. She is feeling better now with just some slight nausea still. Cramps and pains are gone. She is wanting to try water and crackers. She had been up at [employer] [place] earlier in the day. No apparent ground water ingestion. Her dog had rolled in [place] and she washed her dog off in the [place] but did not note any apparent oral contact with her hands. Presume a quick acting gastroenteritis given the abrupt onset. We will treat with antiemetics through the day and see if it improves. She was advised of the finding of a ovarian cyst on the right side. She has a normal yearly exam coming up and will talk with her provider about any follow-up with that. A prescription for Zofran is sent to [facility] in [place]. Diagnoses: 1. Acute gastroenteritis 2. Nausea vomiting diarrhea 3. normal appendix on CT 4. right ovarian cyst Disposition: The patient is discharged home in stable condition. 08/27/21 08:17 08/27/21 08:18
[2021-08-27 09:25] VITALS: BP 95/52
== END 2021-08-27 09:24 | disposition home or self-care (01) ==
LOC: ED 04:39
DX: K52.9 Noninfective gastroenteritis and colitis, unspecified (principal); N83.201 Unspecified ovarian cyst, right side
CPT/HCPCS: 36415; 80053; 81001; 81003; 81025; 83690; 85025; 87086; 96374; 96375; 99283

== ENCOUNTER 2022-02-23 04:00 | Emergency (ER) | payer OTHER, MEDICAID ==
[2022-02-23] MEDS ORDERED: ONDANSETRON 4 MG/2 ML VIAL IVP STA (04:19)
[2022-02-23] MEDS ORDERED: SODIUM CHLORIDE 0.9% 1,000 ML IV STA (04:19)
[2022-02-23] MEDS ORDERED: FAMOTIDINE 20 MG/2 ML VIAL IVP STA (04:20)
--- NOTE | 2022-02-23 04:22 | ED Physician Documentation ---
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 also with 3-4 no nbloody diarrhea episodes. denies abdominal pain but does endorse full body myalgias. denies urinary sx or fever/chills. lmp 02/04. she and her are trying to conceive so she states there is possibility of . Review of Systems Ten Systems: 10 systems reviewed and negative Constitutional: reports: Myalgias, Fatigue. denies: Fever, Chills Cardiac: denies: Chest pain / pressure Respiratory: denies: Dyspnea, Cough GI: reports: Nausea, Vomiting, Diarrhea. 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 - Past Surgical History Past Surgical History: Yes - Present Medications Home Medications: Ambulatory Orders Medication Instructions Recorded Confirmed Ondansetron Odt [Zofran Odt] 4 mg TL Q6H PRN #10 tablet 02/23/22 - Allergies Allergies/Adverse Reactions: Allergies Allergy/AdvReac Type Severity Reaction Status Date / Time amoxicillin Allergy Anaphylaxis Verified 02/23/22 04:11 Penicillins Allergy Anaphylaxis Verified 02/23/22 04:11 - Social History Does the pt smoke?: No Smoking Status: Never smoker Does the pt drink ETOH?: No Does the pt have substance abuse?: Yes - Immunizations Immunizations are current?: Yes Immunizations: Other immun not current - POLST Patient has POLST: No PD ED PE NORMAL - Vitals Vital signs reviewed: Yes - General General: Alert and oriented X 3, No acute distress, Well developed/nourished - HEENT HEENT: Atraumatic, PERRL, EOMI - Neck Neck: Supple, no meningeal sign - Cardiac Cardiac: RRR - Respiratory Respiratory: No respiratory distress, Clear bilaterally - Abdomen Abdomen: Non tender, Non distended - Back Back: No CVA TTP - Derm Derm: Normal color, Warm and dry - Extremities Extremities: No deformity, No edema - Neuro Neuro: No motor deficit, No sensory deficit - Psych Psych: Normal mood, Normal affect Results - Vitals Vitals: Vital Signs - 24 hr 02/23/22 04:09 Temperature 36.3 C L Heart Rate 76 Respiratory 18 Rate Blood Pressure 121/87 H O2 Saturation 97 Oxygen O2 Source Room air - Labs Labs: Laboratory Tests 02/23/22 02/23/22 02/23/22 04:25 04:25 04:25 WBC 17.2 H RBC 4.76 Hgb 14.9 Hct 44.7 MCV 93.9 MCH 31.3 H MCHC 33.3 RDW 13.2 Plt Count 297 MPV 10.5 Neut # (Auto) 15.3 H Lymph # (Auto) 1.3 L [place] # (Auto) 0.5 Eos # (Auto) 0.0 Baso # (Auto) 0.1 Absolute Nucleated RBC 0.00 Nucleated RBC % 0.0 Sodium 141 Potassium 4.6 Chloride 104 Carbon Dioxide 22 Anion Gap 15.0 H BUN 11 Creatinine 0.8 Estimated GFR (MDRD) 87 L Glucose 127 H Calcium 9.4 Total Bilirubin 0.5 AST 28 ALT 21 Alkaline Phosphatase 67 Total Protein 8.9 H Albumin 4.6 Globulin 4.3 H Albumin/Globulin Ratio 1.1 Lipase 34 Urine Color YELLOW Urine Clarity HAZY Urine pH 7.5 Ur Specific [place] 1.010 Urine Protein NEGATIVE Urine Glucose (UA) NEGATIVE Urine Ketones NEGATIVE Urine Occult Blood NEGATIVE Urine Nitrite POSITIVE H Urine Bilirubin NEGATIVE Urine Urobilinogen 0.2 (NORMAL) Ur Leukocyte Esterase NEGATIVE Urine RBC 0-5 Urine WBC 0-3 Ur Squamous Epith Cells MOD Squamous H Urine Bacteria Many H Ur Microscopic Review INDICATED Urine Culture Comments NOT INDICATED Urine HCG, Qual NEGATIVE 02/23/22 05:30 WBC RBC Hgb Hct MCV MCH MCHC RDW Plt Count MPV Neut # (Auto) Lymph # (Auto) [place] # (Auto) Eos # (Auto) Baso # (Auto) Absolute Nucleated RBC Nucleated RBC % Sodium Potassium Chloride Carbon Dioxide Anion Gap BUN Creatinine Estimated GFR (MDRD) Glucose Calcium Total Bilirubin AST ALT Alkaline Phosphatase Total Protein Albumin Globulin Albumin/Globulin Ratio Lipase Urine Color YELLOW Urine Clarity CLEAR Urine pH 7.0 Ur Specific [place] 1.020 Urine Protein NEGATIVE Urine Glucose (UA) NEGATIVE Urine Ketones NEGATIVE Urine Occult Blood NEGATIVE Urine Nitrite NEGATIVE Urine Bilirubin NEGATIVE Urine Urobilinogen 0.2 (NORMAL) Ur Leukocyte Esterase NEGATIVE Urine RBC 0-5 Urine WBC 0-3 Ur Squamous Epith Cells FEW Squamous Urine Bacteria Few Ur Microscopic Review Urine Culture Comments NOT INDICATED Urine HCG, Qual PD MEDICAL DECISION MAKING - ED course ED course: 26yf p/w n/v/d, likely viral etiology vs induced. benign abdominal exam. will treat symptomatically, obtain labs, reevaluate. Patient tolerating PO fluids, feeling better. test negative. discussed that she likely has stomach virus. return precautions given. rx sent for zofran to pharmacy. plan to f/u with pcp. Departure - Departure Disposition: 01 Home, Self Care Clinical Impression: Nausea and vomiting, Myalgia, Diarrhea, Leukocytosis Condition: Stable Instructions: ED Diet Vomiting Diarrhea Prescriptions: Ondansetron Odt [Zofran Odt] 4 mg TL Q6H PRN #10 tablet PRN Reason: Nausea / Vomiting Comments: You were seen in the ED for evaluation of vomiting and diarrhea. You likely have a stomach virus. Please stay home until your symptoms improve and get lots of rest/stay hydrated. Return to the ED for any new or worsening symptoms or if you have other concerns. A script was sent to [facility] in [place] for zofran, an antinausea medicine.
[2022-02-23 04:29] LABS: BASOPHILS # (AUTO) 0.1 10^3/uL (0.0-0.1); BASOPHILS % (AUTO) 0.3 %; HCT - HEMATOCRIT 44.7 % (37.0-47.0); HGB - HEMOGLOBIN 14.9 g/dL (12.0-16.0); LYMPHOCYTES # (AUTO) 1.3 10^3/uL (1.5-3.5); LYMPHOCYTES % (AUTO) 7.5 %; MEAN CORPUSCULAR HEMOGLOBIN 31.3 pg (27.0-31.0); MEAN CORPUSCULAR HGB CONC 33.3 g/dL (32.0-36.0); MEAN CORPUSCULAR VOLUME 93.9 fL (81.0-99.0); MEAN PLATELET VOLUME 10.5 fL (7.9-10.8); MONOCYTES # (AUTO) 0.5 10^3/uL (0.0-1.0); MONOCYTES % (AUTO) 3.1 %; NEUTROPHILS # (AUTO) 15.3 10^3/uL (1.5-6.6); NEUTROPHILS % (AUTO) 88.6 %; PLT - PLATELET COUNT 297 10^3/uL (130-450); RED BLOOD COUNT 4.76 10^6/uL (4.20-5.40); RED CELL DISTRIBUTION WIDTH 13.2 % (12.0-15.0); WHITE BLOOD COUNT 17.2 x10^3/uL (4.8-10.8)
[2022-02-23 04:30] LABS: BILIRUBIN,URINE NEGATIVE (NEGATIVE); GLUCOSE, URINE (UA) NEGATIVE (NEGATIVE); KETONES,URINE (UA) NEGATIVE (NEGATIVE); LEUKOCYTE ESTERASE, URINE NEGATIVE (NEGATIVE); NITRITE,URINE POSITIVE (NEGATIVE); OCCULT BLOOD,URINE NEGATIVE (NEGATIVE); PH,URINE 7.5 PH (5.0-7.5); PROTEIN,URINE NEGATIVE (NEGATIVE); UROBILINOGEN,URINE 0.2 (NORMAL) E.U./dL (NORMAL)
[2022-02-23 04:32] LABS: CLARITY,URINE HAZY (CLEAR); HCG UR QUAL NEGATIVE
[2022-02-23 04:39] LABS: BACTERIA,URINE Many /HPF (None Seen); RBC,URINE 0-5 /HPF (0-5); SQUAMOUS EPITHELIAL CELL,UR MOD Squamous (<= Few); WBC,URINE 0-3 /HPF (0-5)
[2022-02-23 04:41] LABS: ALBUMIN 4.6 g/dL (3.2-5.5); ALBUMIN/GLOBULIN RATIO 1.1 (1.0-2.2); BILIRUBIN,TOTAL 0.5 mg/dL (0.2-1.0); CALCIUM 9.4 mg/dL (8.5-10.3); CREATININE 0.8 mg/dL (0.4-1.0); POTASSIUM 4.6 mmol/L (3.5-5.0); TOTAL PROTEIN 8.9 g/dL (6.7-8.2)
[2022-02-23 05:34] LABS: BILIRUBIN,URINE NEGATIVE (NEGATIVE); GLUCOSE, URINE (UA) NEGATIVE (NEGATIVE); KETONES,URINE (UA) NEGATIVE (NEGATIVE); LEUKOCYTE ESTERASE, URINE NEGATIVE (NEGATIVE); NITRITE,URINE NEGATIVE (NEGATIVE); OCCULT BLOOD,URINE NEGATIVE (NEGATIVE); PROTEIN,URINE NEGATIVE (NEGATIVE); UROBILINOGEN,URINE 0.2 (NORMAL) E.U./dL (NORMAL)
[2022-02-23 05:41] LABS: BACTERIA,URINE Few /HPF (None Seen); CLARITY,URINE CLEAR (CLEAR); RBC,URINE 0-5 /HPF (0-5); SQUAMOUS EPITHELIAL CELL,UR FEW Squamous (<= Few); WBC,URINE 0-3 /HPF (0-5)
[2022-02-23] MEDS ORDERED: ACETAMINOPHEN 325 MG TABLET PO STA (06:02)
[2022-02-23 06:06] VITALS: BP 109/49
== END 2022-02-23 06:06 | disposition home or self-care (01) ==
LOC: ED 04:00
DX: R11.2 Nausea with vomiting, unspecified (principal); M79.10 Myalgia, unspecified site; R19.7 Diarrhea, unspecified; D72.829 Elevated white blood cell count, unspecified
CPT/HCPCS: 36415; 80053; 81001; 81025; 83690; 85025; 96361; 96374; 96375; 99283; A9270; 81003; 87086

== ENCOUNTER 2022-03-22 06:48 | Emergency (ER) | payer MEDICAID, OTHER ==
[2022-03-22] MEDS ORDERED: SODIUM CHLORIDE 0.9% 1,000 ML IV STA (07:10)
[2022-03-22] MEDS ORDERED: ONDANSETRON 4 MG/2 ML VIAL IVP STA (07:10)
--- NOTE | 2022-03-22 07:44 | ED Physician Documentation ---
PD HPI NVD - Stated complaint Stated Complaint: VOMITTING - Chief complaint Chief Complaint: Abd Pain - History obtained from History obtained from: Patient, Family - History of Present Illness Timing - onset: Enter time (0000), Last night Timing - duration: Hours Timing - details: Abrupt onset, Still present Associated symptoms: Abdominal pain, Hematemesis Contributing factors: Other (prior hx of similar also trying to get ) Improved by: Vomiting Similar symptoms before: Diagnosis (gastroenteritis) Recently seen: Not recently seen - Additonal information Additional information: 26-year-old Heike Jean has developed acute nausea and vomiting at midnight. She has had dry heaves all night long and she has had this happen to her several times in the past year. She has been into the emergency department twice with this. When I inquired the patient about use of cannabis she is told me "dude I smoke so much weed and yesterday had way less than normal". She has not been diagnosed with cannabis hyperemesis. She has a headache nausea vomiting vomiting some dried blood and some abdominal pain. She is currently not using control.She has had prior and had significant problem with vomiting Review of Systems Constitutional: reports: Fatigue. denies: Fever, Chills Eyes: denies: Decreased vision Ears: denies: Ear pain Nose: denies: Rhinorrhea / runny nose, Congestion Throat: denies: Sore throat Cardiac: denies: Chest pain / pressure, Palpitations Respiratory: denies: Dyspnea, Cough GI: reports: Abdominal Pain, Nausea, Vomiting : denies: Dysuria, Frequency Skin: denies: Rash Musculoskeletal: denies: Neck pain, Back pain, Extremity pain Neurologic: reports: Headache. 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 - Past Surgical History Past Surgical History: Yes - Present Medications Home Medications: Ambulatory Orders Medication Instructions Recorded Confirmed Ondansetron Odt [Zofran Odt] 4 mg TL Q6H PRN #10 tablet 02/23/22 - Allergies Allergies/Adverse Reactions: Allergies Allergy/AdvReac Type Severity Reaction Status Date / Time amoxicillin Allergy Anaphylaxis Verified 02/23/22 04:11 Penicillins Allergy Anaphylaxis Verified 02/23/22 04:11 - Social History Does the pt smoke?: No Smoking Status: Never smoker Does the pt drink ETOH?: No Does the pt have substance abuse?: Yes - Immunizations Immunizations are current?: Yes Immunizations: Other immun not current - POLST Patient has POLST: No PD ED PE NORMAL - Vitals Vital signs reviewed: Yes (Hypertensive) - General General: Well developed/nourished, Other (Credit Rating Checker tone and flattened affect consistent with acute illness) - HEENT HEENT: Atraumatic, PERRL, EOMI - Neck Neck: Supple, no meningeal sign, No bony TTP - Cardiac Cardiac: RRR, No murmur - Respiratory Respiratory: No respiratory distress, Clear bilaterally - Abdomen Abdomen: Normal bowel sounds, Soft, Non distended, No organomegaly - Back Back: No CVA TTP, No spinal TTP - Derm Derm: Normal color, Warm and dry, No rash - Extremities Extremities: No deformity, No edema - Neuro Neuro: Alert and oriented X 3, commissary helper 2-12 intact, No motor deficit, No sensory deficit, Normal speech Eye Opening: Spontaneous Motor: Obeys Commands Verbal: Oriented GCS Score: 15 - Psych Psych: Normal mood, Other (Affect is flattened) Results - Vitals Vitals: Vital Signs - 24 hr 03/22/22 03/22/22 03/22/22 07:08 07:12 09:11 Temperature 98.4 C H Heart Rate 81 75 Respiratory 20 20 Rate Blood Pressure 140/91 H 128/82 H O2 Saturation 99 100 Oxygen O2 Source Room air - Labs Labs: Laboratory Tests 03/22/22 03/22/22 03/22/22 07:42 07:42 08:56 WBC 9.9 RBC 4.99 Hgb 15.4 Hct 46.0 MCV 92.2 MCH 30.9 MCHC 33.5 RDW 13.6 Plt Count 335 MPV 9.8 Neut # (Auto) 5.9 Lymph # (Auto) 3.5 [place] # (Auto) 0.4 Eos # (Auto) 0.0 Baso # (Auto) 0.1 Absolute Nucleated RBC 0.00 Nucleated RBC % 0.0 Sodium 139 Potassium 3.5 Chloride 106 Carbon Dioxide 20 L Anion Gap 13.0 BUN 14 Creatinine 0.8 Estimated GFR (MDRD) 87 L Glucose 120 H Calcium 9.4 Total Bilirubin 0.8 AST 25 ALT 25 Alkaline Phosphatase 59 Total Protein 8.2 Albumin 4.5 Globulin 3.7 Albumin/Globulin Ratio 1.2 Lipase 28 Urine Color YELLOW Urine Clarity SL. CLOUDY Urine pH 8.5 H Ur Specific [place] 1.010 Urine Protein TRACE Urine Glucose (UA) NEGATIVE Urine Ketones NEGATIVE Urine Occult Blood MODERATE H Urine Nitrite NEGATIVE Urine Bilirubin NEGATIVE Urine Urobilinogen 0.2 (NORMAL) Ur Leukocyte Esterase TRACE H Urine RBC 0-5 Urine WBC 4-5 Ur Squamous Epith Cells MANY Squamous H Urine Bacteria Moderate H Ur Microscopic Review INDICATED Urine Culture Comments NOT INDICATED Urine HCG, Qual 03/22/22 08:56 WBC RBC Hgb Hct MCV MCH MCHC RDW Plt Count MPV Neut # (Auto) Lymph # (Auto) [place] # (Auto) Eos # (Auto) Baso # (Auto) Absolute Nucleated RBC Nucleated RBC % Sodium Potassium Chloride Carbon Dioxide Anion Gap BUN Creatinine Estimated GFR (MDRD) Glucose Calcium Total Bilirubin AST ALT Alkaline Phosphatase Total Protein Albumin Globulin Albumin/Globulin Ratio Lipase Urine Color Urine Clarity Urine pH Ur Specific [place] Urine Protein Urine Glucose (UA) Urine Ketones Urine Occult Blood Urine Nitrite Urine Bilirubin Urine Urobilinogen Ur Leukocyte Esterase Urine RBC Urine WBC Ur Squamous Epith Cells Urine Bacteria Ur Microscopic Review Urine Culture Comments Urine HCG, Qual NEGATIVE PD MEDICAL DECISION MAKING - ED course Complexity details: reviewed old records, reviewed results, re-evaluated patient, considered differential, d/w patient, d/w family ED course: 26-year-old female who uses cannabis heavily has recurrent uncontrolled vomiting she has mild relief with use of Zofran and has further relief with use of Haldol. The patient was kept in the emergency department pending a test before administration of Haldol. The patient in the bed next to her was in severe pain and yelling and crying in pain and this made the patient's anxiety escalate. She became anxious enough that she eventually left before being discharged but after being treated. She was well when she left. Departure - Departure Disposition: 01 Home, Self Care Clinical Impression: Nausea and vomiting Qualifiers: Vomiting type: unspecified Qualified Code(s): R11.2 - Nausea with vomiting, unspecified Condition: Stable Instructions: ED Nausea Vomiting Follow-Up: Thee Bethea MD [Physician No Access] - Discharge Date/Time: 03/22/22 10:33
[2022-03-22 07:49] LABS: BASOPHILS # (AUTO) 0.1 10^3/uL (0.0-0.1); BASOPHILS % (AUTO) 0.6 %; EOSINOPHILS % (AUTO) 0.3 %; HGB - HEMOGLOBIN 15.4 g/dL (12.0-16.0); LYMPHOCYTES # (AUTO) 3.5 10^3/uL (1.5-3.5); LYMPHOCYTES % (AUTO) 35.2 %; MEAN CORPUSCULAR HEMOGLOBIN 30.9 pg (27.0-31.0); MEAN CORPUSCULAR HGB CONC 33.5 g/dL (32.0-36.0); MEAN CORPUSCULAR VOLUME 92.2 fL (81.0-99.0); MEAN PLATELET VOLUME 9.8 fL (7.9-10.8); MONOCYTES # (AUTO) 0.4 10^3/uL (0.0-1.0); NEUTROPHILS # (AUTO) 5.9 10^3/uL (1.5-6.6); NEUTROPHILS % (AUTO) 59.3 %; PLT - PLATELET COUNT 335 10^3/uL (130-450); RED BLOOD COUNT 4.99 10^6/uL (4.20-5.40); RED CELL DISTRIBUTION WIDTH 13.6 % (12.0-15.0); WHITE BLOOD COUNT 9.9 x10^3/uL (4.8-10.8)
[2022-03-22 08:07] LABS: ALBUMIN 4.5 g/dL (3.2-5.5); ALBUMIN/GLOBULIN RATIO 1.2 (1.0-2.2); BILIRUBIN,TOTAL 0.8 mg/dL (0.2-1.0); CALCIUM 9.4 mg/dL (8.5-10.3); CREATININE 0.8 mg/dL (0.4-1.0); POTASSIUM 3.5 mmol/L (3.5-5.0); TOTAL PROTEIN 8.2 g/dL (6.7-8.2)
[2022-03-22 09:30] VITALS: BP 128/82
[2022-03-22 09:34] LABS: BILIRUBIN,URINE NEGATIVE (NEGATIVE); GLUCOSE, URINE (UA) NEGATIVE (NEGATIVE); KETONES,URINE (UA) NEGATIVE (NEGATIVE); LEUKOCYTE ESTERASE, URINE TRACE (NEGATIVE); NITRITE,URINE NEGATIVE (NEGATIVE); OCCULT BLOOD,URINE MODERATE (NEGATIVE); PH,URINE 8.5 PH (5.0-7.5); PROTEIN,URINE TRACE mg/dL (NEGATIVE); UROBILINOGEN,URINE 0.2 (NORMAL) E.U./dL (NORMAL)
[2022-03-22 09:45] LABS: BACTERIA,URINE Moderate /HPF (None Seen); CLARITY,URINE SL. CLOUDY (CLEAR); RBC,URINE 0-5 /HPF (0-5); SQUAMOUS EPITHELIAL CELL,UR MANY Squamous (<= Few)
[2022-03-22 09:51] LABS: HCG UR QUAL NEGATIVE
[2022-03-22] MEDS ORDERED: diphenhydrAMINE INJ 50 MG/ML VIAL IVP STA (09:52)
[2022-03-22] MEDS ORDERED: HALOPERIDOL 5 MG/ML VIAL IVP STA (09:52)
== END 2022-03-22 10:33 | disposition home or self-care (01) ==
LOC: ED 06:48
DX: R11.2 Nausea with vomiting, unspecified (principal)
CPT/HCPCS: 36415; 80053; 81001; 81025; 83690; 85025; 96374; 96375; 99282; 99283; J1200; 81003; 87086